=== PATIENT | female | born 1955 | race Asian ===

== ENCOUNTER 2022-11-11 21:49 | Emergency (ER) | payer OTHER, MEDICARE, SELFPAY ==
[2022-11-11 21:50] VITALS: BP 145/82; PULSE 116; RESP 16; TEMP 37.1; O2SAT 94; BMI 23.5
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
--- NOTE | 2022-11-11 22:40 | RAD_ITS ---
INDICATION: Chest pain EXAMINATION/TECHNIQUE: X-RAY - XR Chest 2 Views COMPARISON: FINDINGS: LINES/DEVICES: None. LUNGS: No consolidation, edema or effusion. No pneumothorax. MEDIASTINUM AND CARDIOVASCULAR STRUCTURES: Cardiac silhouette not enlarged. Mildly calcified aortic arch. Central airways and mediastinal contour are unremarkable. BONES AND SOFT TISSUES: Unremarkable. RAD/Chest PA and Lateral IMPRESSION: No radiographic evidence of acute cardiopulmonary disease. Electronically Signed: Manish Vegas DO at 23:04 EDT Reading Location ID and State: [facility] / [place] Tel [phone], Service support ,
--- NOTE | 2022-11-11 22:40 | RAD_ITS ---
INDICATION: Injury/Pain EXAMINATION/TECHNIQUE: X-RAY - LEFT XR Shoulder 2 VIEWS COMPARISON: FINDINGS: SOFT TISSUES: No soft tissue swelling or gas. No radiopaque foreign body. BONES/JOINTS: There is mild depression of the acromion at the acromioclavicular articulation .. No sclerotic or destructive changes observed. RAD/Shoulder min 2 Views IMPRESSION: There is mild depression of the acromion at the acromioclavicular articulation .. Electronically Signed: Manish Vegas DO at 23:02 EDT ,
--- NOTE | 2022-11-11 22:40 | RAD_ITS ---
STUDY: X-RAY - CERVICAL SPINE REASON FOR EXAM: Female, 67 years old. Injury/Pain TECHNIQUE: 3 view(s) of the cervical spine were obtained. COMPARISON: None FINDINGS: Normal anterior atlantoaxial articulation. Normal odontoid process. Normal cervical lordosis. Normal vertebral bodies and endplates. Possible old fractures involving the tibial spinous processes at T1 and C7. Normal disc space heights. The soft tissue structures are unremarkable. RAD/Cerv Spine 2 or 3 Views IMPRESSION: No acute bony injury of the visualized cervical spine. Electronically Signed: Manish Vegas DO at 23:08 EDT Reading Location ID and State: [facility] / [place] Tel [phone], Service support ,
[2022-11-12] MEDS: Acetaminophen 500 MG Tablet 1000 MG PO (00:12)
[2022-11-12 00:14] VITALS: BP 136/78; PULSE 80; RESP 16; O2SAT 97; O2SAT 98
[2022-11-12] MEDS: Ibuprofen 600 MG Tablet PO (06:49)
== END 2022-11-12 07:54 | disposition home or self-care (01) ==
PROVIDERS: Emergency Provider Emergency Medicine; PCP Internal Medicine; Visit Provider Emergency Medicine
DX: S16.1XXA Strain of muscle, fascia and tendon at neck level, initial encounter (principal); E11.9 Type 2 diabetes mellitus without complications; I10 Essential (primary) hypertension; S29.019A Strain of muscle and tendon of unspecified wall of thorax, initial encounter; S40.012A Contusion of left shoulder, initial encounter; V43.52XA Car driver injured in collision with other type car in traffic accident, initial encounter; W22.10XA Striking against or struck by unspecified automobile airbag, initial encounter; Y92.410 Unspecified street and highway as the place of occurrence of the external cause; Z79.899 Other long term (current) drug therapy
CPT/HCPCS: 71046; 72040; 73030; 99284

== ENCOUNTER 2024-01-01 17:00 | Emergency (ER) | payer MEDICARE, OTHER, SELFPAY ==
[2024-01-01 17:00] VITALS: BP 158/105; PULSE 111; RESP 14; TEMP 36.6; O2SAT 99; BMI 20.9
[2024-01-01 20:55] VITALS: BP 182/107; PULSE 98; RESP 16; O2SAT 93
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
[2024-01-01 22:02] VITALS: BP 154/104; PULSE 91; RESP 15; TEMP 36.8; O2SAT 96
[2024-01-01] MEDS: Tetracaine 0.5% Ophthalmic Bottle 1 DRP OPHTHALMIC (22:14)
[2024-01-01] MEDS: Fluorescein 1 MG STRIP 1 STRIP OPHTHALMIC (22:14)
[2024-01-01] MEDS: Erythromycin Ophthalmic (NSY) 1 GM OPTH.TUBE 1 APPLIC LEFT EYE (22:15)
== END 2024-01-01 22:15 | disposition home or self-care (01) ==
PROVIDERS: Emergency Provider Emergency Medicine; PCP Internal Medicine; Visit Provider Emergency Medicine
DX: T15.92XA Foreign body on external eye, part unspecified, left eye, initial encounter (principal); E11.9 Type 2 diabetes mellitus without complications; H11.32 Conjunctival hemorrhage, left eye; I10 Essential (primary) hypertension; E78.5 Hyperlipidemia, unspecified; Z79.899 Other long term (current) drug therapy; S05.02XA Injury of conjunctiva and corneal abrasion without foreign body, left eye, initial encounter; W22.8XXA Striking against or struck by other objects, initial encounter
CPT/HCPCS: 99283

== ENCOUNTER → 2024-03-15 | Outpatient (CLI) | payer MEDICARE, OTHER, SELFPAY ==
--- NOTE | 2024-03-15 11:36 | US_ITS ---
HISTORY: Left 5th digit to eval ganglion cyst / mass. TECHNIQUE: Routine and color duplex imaging of the left fifth finger. 8 images. COMPARISON: XR 02/25/2024. FINDINGS: 3 x 4 x 4 mm oval hypoechoic circumscribed lesion with posterior acoustic enhancement in the region of interest. US/Ext Non Vasc Limited/Soft Tiss IMPRESSION: 4 mm probable ganglion cyst of the left fifth finger. Consider correlation with MRI. Electronically Signed: Marlys Agustin MD at 9:09 EST ,
== END | disposition home or self-care (01) ==
LOC: US 11:35
PROVIDERS: PCP Internal Medicine; Referring Provider Orthopaedic Surgery Sports Medicine; Visit Provider Orthopaedic Surgery Sports Medicine
DX: M67.442 Ganglion, left hand (principal)
CPT/HCPCS: 76882